=== PATIENT | male | born 1995 | race Caucasian/White ===

== ENCOUNTER 2020-12-13 21:57 | Emergency (ER) | payer OTHER, SELFPAY ==
[2020-12-13 21:59] VITALS: BP 157/88; PULSE 82; RESP 16; TEMP 35.9; O2SAT 97; BMI 24.1
--- NOTE | 2020-12-13 22:31 | EX.ED.UPPERE ---
HPI History of Present Illness Chief Complaint: Upper Extremity Injury Informant: patient Associated Symptoms Associated Symptoms: Negative for Parasthesia, Weakness and Loss of Funtion Narrative Narrative: Patient presents with right upper arm pain and swelling after he had an arterial line there, he was discharged from the hospital 2 days ago and arterial line was removed at that time, he was at [facility] for a valve sparing aortic root replacement open heart surgery. He had an arterial line in the right brachial artery. He states after it was removed there is quite a bit of bruising that was in that area of his distal volar arm and down into his forearm, that has been improving and turning yellow, but the swelling has increased. He states he has dialysis Tuesday and Tuesday, and yesterday when he had dialysis they had a blood pressure cuff on that arm and after that it seemed to hurt more and get more swollen. They have not discussed with anybody at [facility] yet about this, but come to the emergency department Tuesday night. [facility] Medical History (Updated 12/14/20 @ 00:[address] Adal Dawn MD) Acute dissection of thoracic aorta CKD (chronic kidney disease) requiring chronic dialysis Mitral valve regurgitation Thoracic aortic aneurysm Home Medications aspirin 81 mg PO DAILY 12/13/20 [History Last Taken Unknown] calcium carbonate-vitamin D3 [Oyster Shell Calcium-Vit D3] 1 tab PO DAILY 12/13/20 [History Last Taken Unknown] carvedilol 25 mg PO BID 12/13/20 [History Last Taken Unknown] guaifenesin 600 mg PO BID PRN 12/13/20 [History Last Taken Unknown] lidocaine 1 patch TOPICAL DAILY 12/13/20 [History Last Taken Unknown] losartan 75 mg PO DAILY 12/13/20 [History Last Taken Unknown] magnesium hydroxide 400 mg PO DAILY PRN 12/13/20 [History Last Taken Unknown] melatonin 10 mg PO DAILY PRN 12/13/20 [History Last Taken Unknown] omega-3 fatty acids [[place] 3] 1,000 mg PO DAILY 12/13/20 [History Last Taken Unknown] oxybutynin chloride 20 mg PO DAILY 12/13/20 [History Last Taken Unknown] oxycodone 5 mg PO Q6H PRN 12/13/20 [History Last Taken Unknown] pantoprazole 20 mg PO DAILY 12/13/20 [History Last Taken Unknown] prednisone 10 mg PO DAILY 12/13/20 [History Last Taken Unknown] senna-docusate sodium 1 tab PO BID 12/13/20 [History Last Taken Unknown] sevelamer carbonate 800 mg PO TID 12/13/20 [History Last Taken Unknown] tacrolimus 2 mg PO Q12H 12/13/20 [History Last Taken Unknown] Allergy/AdvReac Type Severity Reaction Status Date / Time epoetin beta [From Mircera] Allergy Anaphylaxis Verified 12/13/20 22:02 nickel Allergy Rash Verified 12/13/20 22:02 Surgical History (Updated 12/13/20 @ 22:44 by Raman Mazariegos) H/O aortic root repair Kidney transplant recipient Social History Smoking Status: Never smoker ROS ROS ED Constitutional Constitutional ED: Denies chills or fever(s) Musculoskeletal Musculoskeletal: Reports as per HPI and extremity pain; Denies neck pain Integumentary Denies Abrasions, rash or wounds Neurologic Neurologic: Denies paresthesias or weakness EXAM Physical Exam Const Vital Signs: 12/13/20 21:59 Temperature 96.7 F L Temperature Source Temporal Pulse Rate 82 Respiratory Rate 16 Blood Pressure 157/88 H Blood Pressure Mean 111 Pulse Ox 97 Oxygen Delivery Method Room Air Positive well nourished and well developed General Appearance ED: well developed and NAD Neck full ROM and supple Cardio Cardio Narrative: Excellent right radial and ulnar 2+/4 pulses with normal Anatoly test. No pulsatile abnormalities in the right upper arm, exam limited due to swelling in the biceps area distally. Back/Spine normal ROM and normal to inspection Extremity Extremity Narrative: Distal aspect of the right upper arm/biceps is swollen and tender but soft and not tense. There is a puncture nicho where his arterial line was in the center of this without signs of infection or drainage. No bleeding. It is ecchymotic around this, and distal to this throughout the proximal half of the right volar forearm there is aging ecchymosis, yellowish-green without signs of infection or tenderness there. Neuro oriented x3, no focal motor deficits and no sensory deficits noted Sensorium / Orientation: alert Psych mental status grossly normal and thought process normal Skin no wounds Skin Narrative: Ecchymoses right upper extremity see above Rashes: no rashes MDM MDM MDM Narrative Medical decision making narrative: My concern is that this patient could have a pseudoaneurysm of the right brachial artery. We do not have arterial ultrasound available here on Tuesday, Tuesday, but we will Tuesday morning. I do not think the patient should wait this long. Discussed with cardiac and cardiovascular fellows at [facility], they agree. Discussed with the cardiovascular surgery attending who agree that the patient should be transferred there for a pseudoaneurysm evaluation, accepted by Dr. Santos in the emergency department, where they do have the service available at this time. Mom will take him by private car which I am okay with. Discharge Plan Triage Chief Complaint: Upper Extremity Injury ED Provider: Adla Dawn Dx/Rx/DC Orders Clinical Impression: Pain and swelling of right upper extremity, History of arterial puncture within last 7 days Prescriptions: No Action carvedilol 25 mg Tablet 25 mg PO BID RF: 0 prednisone 10 mg Tablet 10 mg PO DAILY RF: 0 lidocaine 4 % Adhesive Patch,Medicated 1 patch TOPICAL DAILY RF: 0 guaifenesin 600 mg Tablet Extended Release 600 mg PO BID PRN (Reason: Cough) RF: 0 oxybutynin chloride 10 mg Tablet Extended Release 24hr 20 mg PO DAILY RF: 0 pantoprazole 20 mg Tablet,Delayed Release (Dr/Ec) 20 mg PO DAILY RF: 0 magnesium hydroxide 400 mg/5 mL Suspension 400 mg PO DAILY PRN (Reason: Acid Reflux) RF: 0 losartan 25 mg Tablet 75 mg PO DAILY RF: 0 oxycodone 5 mg Capsule 5 mg PO Q6H PRN (Reason: Pain) RF: 0 tacrolimus 1 mg Capsule 2 mg PO Q12H RF: 0 senna-docusate sodium Tablet 1 tab PO BID RF: 0 [place] 3 Capsule 1,000 mg PO DAILY RF: 0 calcium carbonate-vitamin D3 [Oyster Shell Calcium-Vit D3] 500 mg(1,250mg) -200 unit tablet 1 tab PO DAILY RF: 0 sevelamer carbonate 800 mg Tablet 800 mg PO TID RF: 0 melatonin 10 mg Tablet 10 mg PO DAILY PRN (Reason: Insomnia) RF: 0 aspirin 81 mg Capsule 81 mg PO DAILY RF: 0 Primary Care Provider: Care Physician,No Primary Referrals: Care Physician,No Primary [Primary Care Provider] - Disposition Disposition: Acute Care Hospital Discharge Location: [facility]
[2020-12-14] MEDS: oxyCODONE 5 MG Tablet PO (00:20)
[2020-12-14 00:24] VITALS: BP 147/80; PULSE 86; RESP 18; TEMP 35.9; O2SAT 98
== END 2020-12-14 00:30 | disposition short-term general hospital (02) ==
PROVIDERS: Emergency Provider Emergency Medicine
DX: M79.621 Pain in right upper arm (principal); M79.89 Other specified soft tissue disorders; N18.6 End stage renal disease; Z79.52 Long term (current) use of systemic steroids; Z79.82 Long term (current) use of aspirin; Z79.899 Other long term (current) drug therapy; Z99.2 Dependence on renal dialysis
CPT/HCPCS: 99285